=== PATIENT | male | born 1970 | race Caucasian/White ===

== ENCOUNTER 2017-08-19 17:01 | Emergency (ER) | payer OTHER ==
--- NOTE | 2017-08-19 17:35 | EDPHY ---
H & P Time Seen by Provider: 08/19/17 17:16 HPI/ROS: CHIEF COMPLAINT: Left thumb laceration HISTORY OF PRESENT ILLNESS: 47-year-old male presents to the emergency department with a laceration to his left thumb. The patient was at work and accidentally cut his thumb with a knife. The incident happened just prior to arrival. He is right-hand dominant. His last tetanus shot was 1 year ago. He denies any other trauma or injury. ROS: Denies numbness or tingling in his fingers, retained foreign body. Past Medical/Surgical History: Negative Social History: From the [place] Smoking Status: Never smoked Physical Exam: On examination the patient has a 3 cm flap laceration involving the left distal thumb that extends into the nail and the distal, palmar aspect of his left thumb. It does not extend to the DIP joint. No palpable bony tenderness. Full range of motion of his fingers. No evidence of retained foreign body. The other fingers do not appear injured. Constitutional: Initial Vital Signs Temperature (C) 36.8 C 08/19/17 17:08 Heart Rate 67 08/19/17 17:08 Respiratory Rate 16 08/19/17 17:08 Blood Pressure 157/103 H 08/19/17 17:08 O2 Sat (%) 97 08/19/17 17:08 O2 Delivery Mode Room Air Allergies/Adverse Reactions: No Known Allergies Allergy (Unverified 08/19/17 17:07) Home Medications: Medication Instructions Recorded Antacid 08/19/17 MDM/Departure - MDM Procedures: Laceration repair. Verbal consent was obtained from the patient. The 3 cm flap laceration on the left thumb was anesthetized using digital block using 1% lidocaine without epinephrine 0.5% bupivacaine without epinephrine. The wound was irrigated with saline, draped and explored to its base with a gloved finger. There were no deep structures involved. No tendon injury was identified. The wound was repaired with 4 0 Ethilon, 4 sutures. The wound repair was complex. The procedure was performed by myself. - Depart Disposition: Home, Routine, Self-Care Clinical Impression: Laceration of left thumb Qualifiers: Encounter type: initial encounter Damage to nail status: with damage Foreign body presence: without foreign body Qualified Code(s): S61.112A - Laceration without foreign body of left thumb with damage to nail, initial encounter Condition: Good Instructions: Care For Your Stitches (ED), Laceration (ED), Acute Wounds (ED) Additional Instructions: Wound Care Follow-Up: Removal of sutures in 10 days. Suture removal is complimentary in uncomplicated cases. Infection or abnormal findings would require reevaluation by the MD. In that case, you may be billed. Stand Alone Forms: Work Excuse Referrals: NONE *PRIMARY CARE P,. [Primary Care Provider] - As per Instructions
[2017-08-19 18:16] VITALS: BP 135/78
== END 2017-08-19 18:16 | disposition home or self-care (01) ==
PROC: 0HQGXZZ Repair Left Hand Skin, External Approach (ICD-10-PCS; principal; 2017-08-19)
DX: S61.112A Laceration without foreign body of left thumb with damage to nail, initial encounter (principal); W26.0XXA Contact with knife, initial encounter; Y92.69 Other specified industrial and construction area as the place of occurrence of the external cause; Y99.0 Civilian activity done for income or pay; Y93.89 Activity, other specified